=== PATIENT | male | born 1950 | race American Indian/Alaskan Native ===

== ENCOUNTER 2019-10-19 11:42 | Day surgery (SDC) | payer OTHER ==
[~2019-10-19 11:42] MED LIST: SODIUM CHLORIDE 0.9% 1000 ML 1,000 ML IV SCH
--- NOTE | 2019-10-19 13:21 | Anesthesia Day of Surgery ---
Anesthesia Day of Surgery - Day of Surgery Patient Examined: Yes Patient H&P Reviewed: Yes Patient is NPO: Yes
--- NOTE | 2019-10-19 13:21 | Anesthesia Consultation ---
Anesthesia Consult and Med Hx Date of service: 10/19/19 - Airway Anesthetic Teeth Evaluation: Good ROM Head & Neck: Adequate Mental/Hyoid Distance: Adequate Mallampati Class: Class II Intubation Access Assessment: Good - Pulmonary Exam CTA: Yes - Cardiac Exam Cardiac Exam: RRR - Pre-Operative Health Status ASA Pre-Surgery Classification: ASA2 - Cardiovascular System Hx Hypertension: Yes
[2019-10-19] MEDS ORDERED: PROPOFOL 200 MG/20 ML VIAL IV ONE ×3 (13:29→13:56)
--- NOTE | 2019-10-19 14:07 | Procedure Note ---
Date of procedure: 10/19/19 Pre-op diagnosis: Colon Polyp Screening Post-op diagnosis: other (Colon Polyps (Transverse Colon and Rectal)/ Minor,Left Colon diverticuli) Procedure: Colonoscopy with Cold Snare Polypectomy and Cold Biosy Anesthesia: MAC Surgeon: HARJIT CARROLL Estimated blood loss: minimal Pathology: list Specimen disposition: to lab Condition: stable Disposition: same day (Encourage fiber intake. Avoid aspirin and NSAID for 4 days; otherwise resume home medication.)
--- NOTE | 2019-10-19 14:15 | Operative Report ---
PROCEDURE: Colonoscopy. INDICATIONS: A 69-year-old -[place] gentleman who has never had a colonoscopy prior to this one. Colonoscopy was done as part of colon polyp screening. DESCRIPTION OF PROCEDURE: Procedure was done after getting informed consent with MAC anesthesia. Initial rectal exam was unremarkable. Instrument was passed through the rectum onto the cecum, which was identified by the ileocecal valve and the appendiceal orifice. Visualization was fair to good. The terminal ileum was intubated showed normal mucosa. The cecum was viewed on the retroverted view. No additional pathology was noted. The cecum, ascending colon and the proximal transverse colon showed normal mucosa. In the distal transverse colon, there was a 9-10 mm sessile polyp noted that was removed by cold snare polypectomy and retrieved. There were a few scattered diverticula noted in the left colon and the rectosigmoid area. The rectum showed 3 polyps, two that were removed by cold biopsy and one by cold snare polypectomy and retrieved and the rectum appeared normal on the retroverted view. There was minimal bleeding from the polypectomy sites. No complications associated with the procedure. Procedure was done in the GI Lab with the assistance of the GI Lab team, which included LEFTY Mckinney, centrifugal chiller technician and with the assistance of anesthesia. ASSESSMENT: Colon polyp screening; solitary transverse colon polyp; few rectal polyps, possibly hyperplastic; minor left colon diverticula. The patient will be asked to avoid aspirin and aspirin-related products for the next few days, but resume other home medication. Encouraged fiber supplements and follow up in the office in 1-2 weeks' time. JOB# [id number] CADE/DAHIANA
[2019-10-19 14:32] VITALS: BP 138/78
== END 2019-10-19 11:43 | disposition home or self-care (01) ==
LOC: GIO 11:42
DX: Z12.11 Encounter for screening for malignant neoplasm of colon (principal); D12.3 Benign neoplasm of transverse colon; K62.1 Rectal polyp; K57.30 Diverticulosis of large intestine without perforation or abscess without bleeding; I10 Essential (primary) hypertension; E78.00 Pure hypercholesterolemia, unspecified; F17.210 Nicotine dependence, cigarettes, uncomplicated; E66.9 Obesity, unspecified; Z68.41 Body mass index [BMI] 40.0-44.9, adult; Z79.899 Other long term (current) drug therapy; Z80.0 Family history of malignant neoplasm of digestive organs
CPT/HCPCS: 45380; 45385; 88305; J2704; J7030